=== PATIENT | female | born 1980 | race American Indian/Alaskan Native ===

== ENCOUNTER 2016-04-11 11:37 | Emergency (ER) | payer SELFPAY ==
--- NOTE | 2016-04-11 12:05 | Emergency Department Report ---
Chief Complaint: Headache Stated Complaint: HEADACHES Time Seen by Provider: 04/11/16 11:52 - HPI History of Present Illness: 35-year-old female with history of CVA and to brain aneurysms presents today with headache 2 days. Positive for sudden onset and rates it as a 7 out of 10. Also complaining of back and abdominal pain post her last brain aneurysm. Denies vision change, nausea, vomiting, dizziness, chest pain, shortness of breath. - ROS Review of Systems: Per HPI - Exam Vital Signs: Vital Signs 04/11/16 11:40 Temperature 97.9 F Pulse Rate 88 Blood Pressure 138/108 O2 Sat by Pulse 16 L Oximetry Physical Exam: General: 35-year-old female in no acute distress. Well-developed, well- nourished. CV: Regular rate and rhythm. No murmurs rubs or gallops. Lungs: Clear to auscultation bilaterally. Neuro: Alert and oriented 3, normal gait, fluid speech, EOMs intact, normal facial sensation, no facial droop, strength exam 5/5 upper and lower extremities , GCS equals 15, finger to nose normal, negative Romberg test. MSE screening note: Focused history and physical exam performed. Due to findings the following was ordered: ED Disposition for MSE Condition: Stable
[2016-04-11 12:28] LABS: Basophils % (Auto) 1.5 % (0.0-1.8); Eosinophils % (Auto) 2.1 % (0.0-4.3); Hematocrit 38.1 % (30.3-42.9); Mean Corpuscular HGB Conc 31 % (30-34); Mean Corpuscular Volume 78 fl (79-97); Platelet Count 332 K/mm3 (140-440); Red Blood Count 4.91 M/mm3 (3.65-5.03); Red Cell Distribution Width 15.2 % (13.2-15.2); White Blood Count 5.3 K/mm3 (4.5-11.0)
[2016-04-11 12:30] LABS: Mean Corpuscular Hemoglobin 24 pg (28-32)
[2016-04-11 12:43] LABS: BUN/Creatinine Ratio 13.33; Blood Urea Nitrogen 8 mg/dL (7-17); Calcium 8.5 mg/dL (8.4-10.2); Carbon Dioxide 29 mmol/L (22-30); Chloride 107.7 mmol/L (98-107); Glucose 96 mg/dL (65-100); Potassium 4.1 mmol/L (3.6-5.0); Sodium 144 mmol/L (137-145)
[2016-04-11 12:50] LABS: Anion Gap 11 mmol/L
--- NOTE | 2016-04-11 12:58 | Cat Scan Report ---
CT HEAD WITHOUT CONTRAST: HISTORY: Head ache. Compared to 06/07/15. left craniotomy changes and aneurysm coiling in the anterior [place] to the left of midline is noted. There is no evidence for acute hemorrhage. Focal encephalomalacia in the left subfrontal lobe measures 1.5 cm. This is probably related to surgery. The ventricles are normal in size and appearance. There is no mass effect or midline shift. No areas of abnormally increased or decreased attenuation are seen. No mass lesion is seen. The mastoid air cells and visualized portions of the sinuses are normal. IMPRESSION: No acute intracranial process. Surgical changes as described.
--- NOTE | 2016-04-11 22:56 | Emergency Department Report ---
HPI - General Chief Complaint: Headache Time Seen by Provider: 04/11/16 22:42 - HPI HPI: The patient is a 35-year-old female who presents for evaluation of back pain. The patient reports recurrence of neck pain for the past 2 days, worse to the bilateral lower back, 10 out of 10 in severity, sharp in quality, exacerbated with ambulation or bending of the back, and improved with rest. She has a secondary complaint of generalize aching moderate in severity headache, bandlike , constant since onset this a.m. greater than 8 hours prior to my evaluation. The patient denies blunt trauma to the back, fall, fever, neck stiffness, chest pain, dyspnea, saddle anesthesia, paresthesias, numbness or tingling in the legs , leg weakness, urine or bowel incontinence or retention, difficulty ambulating , or other focal neurological deficits. ED Past Medical Hx - Past Medical History Previous Medical History?: Yes Hx Hypertension: Yes Hx CVA: Yes (aneurysm 2015 and surgery) - Surgical History Past Surgical History?: Yes Additional Surgical History: brain aneurysm - Social History Smoking Status: Unknown if ever smoked Substance Use Type: None - Medications Home Medications: Home Medications Medication Instructions Recorded Confirmed Last Taken Type amLODIPine [Norvasc] 5 mg PO DAILY #31 tablet 05/22/15 04/11/16 06/06/15 Rx HYDROcodone/APAP 7.5-325 [[place] 1 each PO Q8HR PRN #12 tablet 04/11/16 Unknown Rx 7.5-325 mg TAB] Ibuprofen [Motrin] 800 mg PO Q8HR PRN #10 tablet 04/11/16 Unknown Rx ED Review of Systems ROS: Stated complaint: HEADACHES Other details as noted in HPI Constitutional: denies: fever ENT: denies: throat or neck pain Respiratory: denies: cough, shortness of breath Cardiovascular: denies: chest pain Endocrine: denies unexplained weight loss or gain Gastrointestinal: denies: abdominal pain, nausea Genitourinary: denies: dysuria Musculoskeletal: reports back pain Skin: denies: rash Neurological: reports headache Hematological/Lymphatic: denies: easy bleeding or easy bruising Psych: denies sadness or hopelessness Physical Exam - Physical Exam Vital Signs: Vital Signs 04/11/16 04/11/16 11:40 22:50 Temperature 97.9 F 98.1 F Pulse Rate 88 67 Respiratory 20 Rate Blood Pressure 138/108 Blood Pressure 160/82 [Left] O2 Sat by Pulse 16 L 100 Oximetry Physical Exam: General: well-nourished, well-developed, no acute distress, patient morbidly obese Head: Normocephalic, atraumatic Eyes: normal sclera, PERRL, EOM intact ENT: Mucous membranes are pink and moist Neck: trachea midline, neck supple, No neck stiffness, no cervical adenopathy Respiratory: Breath sounds equal bilaterally, no wheezing, rales, or rhonchi Cardio: S1 and S2 present, no murmurs, rubs, gallops, capillary refill is brisk Abdomen: Normoactive bowel sounds, soft abdomen, no rigidity, no guarding or rebound tenderness Chest WALL/Back: tenderness to palpation present to bilateral thoracic and lumbar paraspinal musculature, normal passive range of motion at the hips intact , no spinous step-off or obvious deformity, ipsi-lateral and contralateral straight leg raise tests are negative. On extremity testing, compartments are soft and pliable, no obvious gross motor strength deficit in the legs, 5+ motor strength, including extension of the great toe bilaterally, no muscular atrophy , spasticity, fasciculations, or clonus, no obvious gross sensation deficit including web space between 1st and 2nd toes, reflexes 2+ & symmetric on DTR testing at the knee and ankle joints, distal pulses intact. Musc: No pitting edema Skin: No rash Neuro: alert oriented x4, normal cognition, speech normal, no facial drooping, no uvula or tongue deviation on protrusion, no deficit with rotation of neck or shoulder shrug, no obvious gross motor deficit in the upper or lower extremities with flexion or extension at the shoulder, elbow, wrist, hip, knee, or ankle bilaterally, no obvious gross sensation deficit to crude touch or 2 pt discrimination, 2+ symmetric reflexes on DTR testing, no coordination deficit with gymifd-jd-fcat or rcek-td-xygn testing, patient able to to ambulate without abnormal gait Psych: Normal affect ED Course Vital Signs 04/11/16 04/11/16 11:40 22:50 Temperature 97.9 F 98.1 F Pulse Rate 88 67 Respiratory 20 Rate Blood Pressure 138/108 Blood Pressure 160/82 [Left] O2 Sat by Pulse 16 L 100 Oximetry ED Medical Decision Making - Lab Data Result diagrams: 04/11/16 12:11 04/11/16 12:11 - Medical Decision Making The patient was seen and examined by myself. The patient is placed on a lead android developer and continuous pulse ox. On initial evaluation, the patient was found to be in no distress. There are no neuro deficits and the patient's pain is consistent with previous headaches. The patient is given IM Toradol, Valium , and morphine for pain. No findings on exam concerning for cauda equina syndrome, spinal stenosis, or epidural abscess . As the patient has no midline tenderness on exam, no neuro deficits, and no findings concerning for emergent etiology of their back pain, imaging of the back will not be obtained at this time. Lab results are unremarkable. CAT scan of the head is negative for acute intracranial disease process. The patient was reevaluated and reported that her pain was markedly improved. The patient is stable for discharge with outpatient follow-up. The patient is given follow-up and return instructions. The patient expressed understanding and agreed with the plan. The patient is discharged in stable condition. Critical care attestation.: If time is entered above; I have spent that time in minutes in the direct care of this critically ill patient, excluding procedure time. ED Disposition Clinical Impression: Acute bilateral low back pain without sciatica, Acute non intractable tension- type headache Disposition: DISCHARGED TO HOME OR SELFCARE Is pt being admited?: No Does the pt Need Aspirin: No Condition: Stable Instructions: Acute Headache (ED), Acute Low Back Pain (ED) Referrals: PRIMARY CARE, [Primary Care Provider] - 3-5 Days Time of Disposition: 22:56
[2016-04-11] MEDS ORDERED: VALIUM IM ONE (23:10)
[2016-04-11] MEDS ORDERED: DILAUDID IM ONE (23:10)
[2016-04-11] MEDS ORDERED: TORADOL IM ONE (23:10)
[2016-04-12 01:06] VITALS: BP 150/78
== END 2016-04-12 01:07 | disposition home or self-care (01) ==
LOC: ED 11:37
DX: M54.5 Low back pain (principal); G44.209 Tension-type headache, unspecified, not intractable; I10 Essential (primary) hypertension; I63.9 Cerebral infarction, unspecified
CPT/HCPCS: 36415; 70450; 80048; 85025; 96372; 99284; J1170; J1885; J3360

== ENCOUNTER 2017-06-07 17:55 | Emergency (ER) | payer OTHER ==
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
[2017-06-07 22:47] VITALS: BP 163/96
== END 2017-06-07 22:47 | disposition home or self-care (01) ==
LOC: ED 17:55
DX: M54.9 Dorsalgia, unspecified (principal); M54.2 Cervicalgia; I10 Essential (primary) hypertension; F17.200 Nicotine dependence, unspecified, uncomplicated; Z86.73 Personal history of transient ischemic attack (TIA), and cerebral infarction without residual deficits; Z88.6 Allergy status to analgesic agent
CPT/HCPCS: 99282

== ENCOUNTER 2018-10-05 14:42 | Emergency (ER) | payer SELFPAY ==
--- NOTE | 2018-10-05 15:58 | Event Note ---
ED Screening Note ED Screening Note: pt presents with right wrist, and hand pain began a week ago denies any fall or injury PMHx HTN allergy: tramadol +smoker non drinker no drug use This initial assessment/diagnostic orders/clinical plan/treatment(s) is/are subject to change based on patients health status, clinical progression and re- assessment by fellow clinical providers in the ED. Further treatment and workup at subsequent clinical providers discretion. Patient/guardian urged not to elope from the ED as their condition may be serious if not clinically assessed and managed. Initial orders include: XR right wrist and right hand
--- NOTE | 2018-10-05 16:58 | XRay Report ---
RIGHT HAND 3 VIEWS INDICATION / CLINICAL INFORMATION: right hand pain. COMPARISON: None available. FINDINGS: No significant skeletal abnormality. Signer Name: Praful Acuna MD FACBandar Signed: 10/05/2018 4:54 PM Workstation Name: [id number]
--- NOTE | 2018-10-05 16:59 | XRay Report ---
RIGHT WRIST 4 VIEWS INDICATION / CLINICAL INFORMATION: right wrist pain. COMPARISON: None available. FINDINGS: No significant skeletal abnormality. Signer Name: Praful Acuna MD FACBandar Signed: 10/05/2018 4:55 PM Workstation Name: [id number]
[2018-10-05] MEDS ORDERED: NORCO 5/325 PO ONE (19:43)
[2018-10-05] MEDS ORDERED: DELTASONE PO ONE (19:43)
[2018-10-05] MEDS ORDERED: IBUPROFEN PO ONE (19:43)
[2018-10-05] MEDS ORDERED: ZOFRAN ODT PO ONE (19:44)
--- NOTE | 2018-10-05 20:16 | Emergency Department Report ---
Upper Extremity - HPI Chief Complaint: Extremity Injury, Upper Stated Complaint: R HAND PAIN/HIGH BP Time Seen by Provider: 10/05/18 15:57 Upper Extremity: Right Wrist (pain), Right Hand (pain) Occurred When: >5 Days Mechanism: Unsure, Other (Spontaneous, chronic Carpal tunnel syndrome) Symptoms: Yes Pain with Movement, Yes Limited Range of Movement (due to pain), Yes Numbness, No Deformity, No Weakness, No Swelling, No Bruising/Ecchymosis, No Laceration or Abrasion Other History: The patient is a 37-year-old -Beninese female with a history of carpal tunnel syndrome and hypertension who presents to the ED with complaint of acute exacerbation of her chronic carpal tunnel syndrome characterized by severe right hand and wrist pain for the last 1 week. Patient states that she tried to take [id number] pain medications with no relief. 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 Patient denies fall, traumatic injuries, weakness of right hand and right wrist, dizziness, neck pain, chest pain, shortness of breath, fever or chills and nausea and vomiting. ED Review of Systems ROS: Stated complaint: R HAND PAIN/HIGH BP Other details as noted in HPI Constitutional: denies: chills, fever Eyes: denies: eye pain, eye discharge, vision change ENT: denies: ear pain, throat pain Respiratory: denies: cough, shortness of breath, wheezing Cardiovascular: denies: chest pain, palpitations Endocrine: no symptoms reported Gastrointestinal: denies: abdominal pain, nausea, diarrhea Genitourinary: denies: urgency, dysuria, discharge Musculoskeletal: arthralgia (right hand and wrist ). denies: back pain, joint swelling Skin: denies: rash, lesions Neurological: denies: headache, weakness, paresthesias Psychiatric: denies: anxiety, depression Hematological/Lymphatic: denies: easy bleeding, easy bruising ED Past Medical Hx - Past Medical History Hx Hypertension: Yes Hx CVA: Yes (aneurysm 2015 and surgery) - Surgical History Additional Surgical History: brain aneurysm - Social History Smoking Status: Current Every Day Smoker Substance Use Type: None - Medications Home Medications: Home Medications Medication Instructions Recorded Confirmed Last Taken Type amLODIPine [Norvasc] 5 mg PO DAILY #31 tablet 05/22/15 04/11/16 06/06/15 Rx HYDROcodone/APAP 7.5-325 [[place] 1 each PO Q8HR PRN #12 tablet 04/11/16 Unknown Rx 7.5-325 mg TAB] Ibuprofen [Motrin] 800 mg PO Q8HR PRN #10 tablet 04/11/16 Unknown Rx Ibuprofen 600 mg PO Q8H PRN #15 tablet 06/07/17 Unknown Rx Lisinopril/Hydrochlorothiazide 1 tab PO QDAY #30 tablet 06/07/17 Unknown Rx [Zestoretic 10-12.5 mg] Acetaminophen/Codeine [Tylenol 1 tab PO Q6H PRN #15 tab 10/05/18 Unknown Rx /Codeine # 3 tab] Gabapentin [Gralise] 300 mg PO DAILY PRN #30 tab.er.24h 10/05/18 Unknown Rx Naproxen [Naprosyn] 500 mg PO Q12H PRN #20 tablet 10/05/18 Unknown Rx Ondansetron [Zofran Odt] 4 mg PO Q6HR PRN #15 tab.rapdis 10/05/18 Unknown Rx predniSONE [Deltasone] 60 mg PO QDAY #15 tab 10/05/18 Unknown Rx Upper Extremity Exam - Exam General: Vital signs noted. No distress. Alert and acting appropriately. Head and Torso: No HEENT Abnormality, No Neck Tenderness, No Chest/Lungs Abnormality, No Abdominal Tenderness, No Back Tenderness Shoulder Exam: Yes Normal Range of Motion in Shoulder, No Shoulder Tenderness, No Clavicle Tenderness, No Shoulder Deformity, No AC Joint Tenderness Arm Exam: No Arm/Humerus Tenderness, No Arm Deformity Elbow: Yes Normal Range of Motion in Elbow, No Elbow Tenderness, No Elbow Deformity Forearm: No Forearm Tenderness, No Forearm Deformity, No Pain with Pronation, No Pain with Supination Wrist: Yes Wrist Tenderness (right wrist), No Normal ROM in Wrist (limited due to pain), No Wrist Deformity, No Snuffbox Tenderness, No Pain with Axial Thumb Compression Hand: Yes Hand Tenderness (right hand), Yes Normal ROM in Digit(s), No Hand Deformity, No Digit Tenderness, No Digit(s) Deformity, No Tendon Dysfunction CMS Exam: No Broken Skin, No Normal Distal Pulses, No Normal Capillary Refill, No Normal Distal Sensation Hand L/R Front: 1 - Palpable tenderness Hand L/R Back: 1 - Palpable tenderness ED Course Vital Signs 10/05/18 10/05/18 15:57 19:58 Temperature 98.1 F Pulse Rate 70 Respiratory 16 18 Rate Blood Pressure 164/117 O2 Sat by Pulse 100 Oximetry - Reevaluation(s) Reevaluation #1: 10/05/18 20:18 Patient is alert and oriented 3 and is not in distress but in pain. Right hand and wrist x-rays show no acute fractures or subluxations, no soft tissue swelling. Patient was treated for pain and the right hand and wrist joints were splinted. Wrist splint, and patient is sent home on medications for pain, and advised to follow-up with her primary care physician in 5-7 days for reevalu ation, or return to the ED immediately if symptoms get worse. ED Medical Decision Making - Radiology Data Radiology results: report reviewed, image reviewed Right hand x-ray: No acute fractures or subluxations Right wrist x-ray: No acute fractures or subluxations - Medical Decision Making Patient is alert and oriented 3 and is not in distress but in pain. Right hand and wrist x-rays show no acute fractures or subluxations, no soft tissue swelling. Patient was treated for pain and the right hand and wrist joints were splinted. Wrist splint, and patient is sent home on medications for pain, and advised to follow-up with her primary care physician in 5-7 days for reevaluation, or return to the ED immediately if symptoms get worse. - Differential Diagnosis Carpal Tunnel Syndrome; Tendonitis; Muscle strain, wrist fracture Critical care attestation.: If time is entered above; I have spent that time in minutes in the direct care of this critically ill patient, excluding procedure time. ED Disposition Clinical Impression: Carpal tunnel syndrome of right wrist, Tendonitis of right hand Disposition: - TO HOME OR SELFCARE Is pt being admited?: No Does the pt Need Aspirin: No Condition: Stable Instructions: Carpal Tunnel Syndrome (ED), Tendinitis (ED) Additional Instructions: Take medications with food, drink plenty of fluids and follow up with your primary care physician is advised in 7-10 days for reevaluation. Return to the ED immediately if symptoms get worse. Prescriptions: predniSONE [Deltasone] 60 mg PO QDAY #15 tab Gabapentin [Gralise] 300 mg PO DAILY PRN #30 tab.er.24h PRN Reason: Pain , Severe (7-10) Naproxen [Naprosyn] 500 mg PO Q12H PRN #20 tablet PRN Reason: Pain , Severe (7-10) Acetaminophen/Codeine [Tylenol /Codeine # 3 tab] 1 tab PO Q6H PRN #15 tab PRN Reason: Pain , Severe (7-10) Ondansetron [Zofran Odt] 4 mg PO Q6HR PRN #15 tab.rapdis PRN Reason: Nausea Referrals: [facility] [Outside] - 3-5 Days Time of Disposition: 20:13 Print Language: CUBAN
[2018-10-05 20:19] VITALS: BP 153/91
== END 2018-10-05 20:57 | disposition home or self-care (01) ==
LOC: ED 14:42
DX: G56.01 Carpal tunnel syndrome, right upper limb (principal); M77.9 Enthesopathy, unspecified; I10 Essential (primary) hypertension; F17.200 Nicotine dependence, unspecified, uncomplicated; Z79.1 Long term (current) use of non-steroidal anti-inflammatories (NSAID); Z88.5 Allergy status to narcotic agent; Z79.899 Other long term (current) drug therapy
CPT/HCPCS: 29125; 73110; 73130; 99284; J7512; Q0162

== ENCOUNTER 2019-02-08 11:05 | Emergency (ER) | payer SELFPAY ==
[2019-02-08] MEDS ORDERED: ASPIRIN 325 MG TAB PO ONE (11:59)
--- NOTE | 2019-02-08 11:59 | Event Note ---
ED Screening Note Date of service: 02/08/19 Time: 11:57 ED Screening Note: 38 y o F with PMH of HTN presents with chest pain x 3 days no radiation out of BP meds x 2 days PMH of 2 brain joy This initial assessment/diagnostic orders/clinical plan/treatment(s) is/are subject to change based on patients health status, clinical progression and re- assessment by fellow clinical providers in the ED. Further treatment and workup at subsequent clinical providers discretion. Patient/guardian urged not to elope from the ED as their condition may be serious if not clinically assessed and managed. Initial orders include: labs, ekg,cxr
[2019-02-08 12:46] LABS: Basophils # (Auto) 0.1 K/mm3 (0.0-0.1); Basophils % (Auto) 1.2 % (0.0-1.8); Eosinophils # (Auto) 0.1 K/mm3 (0.0-0.4); Eosinophils % (Auto) 2.1 % (0.0-4.3); Hematocrit 36.2 % (30.3-42.9); Hemoglobin 11.6 gm/dl (10.1-14.3); Lymphocytes # (Auto) 2.4 K/mm3 (1.2-5.4); Lymphocytes % (Auto) 46.6 % (13.4-35.0); Mean Corpuscular HGB Conc 32 % (30-34); Mean Corpuscular Volume 79 fl (79-97); Monocytes # (Auto) 0.4 K/mm3 (0.0-0.8); Monocytes % (Auto) 6.9 % (0.0-7.3); Platelet Count 379 K/mm3 (140-440); Red Blood Count 4.61 M/mm3 (3.65-5.03); Red Cell Distribution Width 14.6 % (13.2-15.2)
[2019-02-08 12:51] LABS: BUN/Creatinine Ratio 17; Blood Urea Nitrogen 15 mg/dL (7-17); Hemolysis Index 7
--- NOTE | 2019-02-08 13:52 | XRay Report ---
CHEST 2 VIEWS INDICATION: Chest Pain/ HCG ORDERED 1203 AYT. COMPARISON: None FINDINGS: Support devices: None. Heart: Within normal limits. Lungs/pleura: No acute air space or interstitial disease. No pneumothorax. Please note the right lat eral chest wall is cut off the [id number]. Additional findings: None. IMPRESSION: No acute findings. Signer Name: Randy Garner Jr, MD Signed: 02/08/2019 1:47 PM Workstation Name: [id number]
[2019-02-08] MEDS ORDERED: ASPIRIN 325 MG TAB ONE (14:25)
[2019-02-08] MEDS ORDERED: LISINOPRIL 20 MG TAB PO ONE (14:33)
[2019-02-08] MEDS ORDERED: hydroCHLOROthiazide 25 MG TAB PO ONE (14:33)
--- NOTE | 2019-02-08 14:47 | Emergency Department Report ---
ED General Adult HPI - General Chief complaint: Chest Pain Stated complaint: BACK PAIN/BP HIGH Time Seen by Provider: 02/08/19 14:24 Source: patient Mode of arrival: Ambulatory Limitations: No Limitations - History of Present Illness Initial comments: 38yo female comes to ER today after being seen at [facility] due to her BP being elevated. On probing pt was given 30 lisinopril/hctz in 05/2017- this has lasted her until just a few days ago. She was taking them PRN. Pt endorces many vague complaints such as cp, sob, neck pain- since stopping her bp meds. PCP NONE RX NONE [facility] POS CIG/THC Pt ambulatory and in no acute distress on arrival to ER. She denied complaints with me and is essentially here for BP meds. Labs noted per the screening process. Pt educated on bp, her risk and follow up she needs to pursue. -: Gradual Treatments Prior to Arrival: none - Related Data Previous Rx's Medication Instructions Recorded Last Taken Type Lisinopril/Hydrochlorothiazide 1 tab PO QDAY #30 tablet 06/07/17 Unknown Rx [Zestoretic 10-12.5 mg] Lisinopril [Zestril TAB] 20 mg PO QDAY #30 tablet 02/08/19 Unknown Rx hydroCHLOROthiazide [HCTZ] 25 mg PO QDAY #30 tablet 02/08/19 Unknown Rx Allergies Allergy/AdvReac Type Severity Reaction Status Date / Time tramadol Allergy Vomiting Verified 10/05/18 14:53 steriods Allergy Swelling Uncoded 02/08/19 11:08 ED Review of Systems ROS: Stated complaint: BACK PAIN/BP HIGH Other details as noted in HPI Comment: All other systems reviewed and negative ED Past Medical Hx - Past Medical History Previous Medical History?: Yes Hx Hypertension: Yes Hx CVA: Yes (aneurysm 2015 and surgery) Hx Heart Attack/AMI: No Hx Congestive Heart Failure: No Hx Diabetes: No Hx Deep Vein Thrombosis: No Hx Pulmonary Embolism: No Hx GERD: No Hx Liver Disease: No Hx Renal Disease: No Hx of Cancer: No Hx Sickle Cell Disease: No Hx Arthritis: No Hx Headaches / Migraines: No Hx Seizures: No Hx Kidney Stones: No Hx Psychiatric Treatment: No Hx Asthma: No Hx COPD: No Hx Tuberculosis: No Hx Dementia: No Hx HIV: No - Surgical History Past Surgical History?: Yes Additional Surgical History: brain aneurysm- hernia - Family History Family history: no significant - Social History Smoking Status: Current Every Day Smoker Substance Use Type: Marijuana - Medications Home Medications: Home Medications Medication Instructions Recorded Confirmed Last Taken Type Lisinopril/Hydrochlorothiazide 1 tab PO QDAY #30 tablet 06/07/17 Unknown Rx [Zestoretic 10-12.5 mg] Lisinopril [Zestril TAB] 20 mg PO QDAY #30 tablet 02/08/19 Unknown Rx hydroCHLOROthiazide [HCTZ] 25 mg PO QDAY #30 tablet 02/08/19 Unknown Rx ED Physical Exam - General Limitations: No Limitations General appearance: alert, in no apparent distress - Head Head exam: Present: atraumatic, normocephalic - Eye Eye exam: Present: normal appearance - ENT ENT exam: Present: mucous membranes moist - Neck Neck exam: Present: normal inspection - Respiratory Respiratory exam: Present: normal lung sounds bilaterally. Absent: respiratory distress - Cardiovascular Cardiovascular Exam: Present: regular rate, normal rhythm. Absent: systolic murmur, diastolic murmur, rubs, gallop - GI/Abdominal GI/Abdominal exam: Present: soft, normal bowel sounds - Extremities Exam Extremities exam: Present: normal inspection - Back Exam Back exam: Present: normal inspection - Neurological Exam Neurological exam: Present: alert, oriented X3 - Psychiatric Psychiatric exam: Present: normal affect, normal mood - Skin Skin exam: Present: warm, dry, intact, normal color. Absent: rash ED Course Vital Signs 02/08/19 02/08/19 02/08/19 11:54 14:38 15:21 Temperature 98.3 F Pulse Rate 86 62 Respiratory 17 22 Rate Blood Pressure 152/103 165/101 Blood Pressure 167/105 [Left] O2 Sat by Pulse 100 100 Oximetry 02/08/19 02/08/19 15:26 15:28 Temperature Pulse Rate 65 Respiratory 16 12 Rate Blood Pressure Blood Pressure 146/98 [Left] O2 Sat by Pulse 98 98 Oximetry ED Medical Decision Making - Lab Data Result diagrams: 02/08/19 12:26 02/08/19 12:26 - EKG Data EKG shows normal: sinus rhythm Rate: normal - EKG Data When compared to previous EKG there are: no significant change Interpretation: no acute changes - Radiology Data Radiology results: report reviewed, image reviewed - Medical Decision Making Lab Results 02/08/19 02/08/19 02/08/19 Range/Units 12:26 12:26 12:26 WBC 5.2 (4.5-11.0) K/mm3 RBC 4.61 (3.65-5.03) M/mm3 Hgb 11.6 (10.1-14.3) gm/dl Hct 36.2 (30.3-42.9) % MCV 79 (79-97) fl MCH 25 L (28-32) pg MCHC 32 (30-34) % RDW 14.6 (13.2-15.2) % Plt Count 379 (140-440) K/mm3 Lymph % (Auto) 46.6 H (13.4-35.0) % [place] % (Auto) 6.9 (0.0-7.3) % Eos % (Auto) 2.1 (0.0-4.3) % Baso % (Auto) 1.2 (0.0-1.8) % Lymph # 2.4 (1.2-5.4) K/mm3 [place] # 0.4 (0.0-0.8) K/mm3 Eos # 0.1 (0.0-0.4) K/mm3 Baso # 0.1 (0.0-0.1) K/mm3 Seg Neutrophils % 43.2 (40.0-70.0) % Seg Neutrophils # 2.3 (1.8-7.7) K/mm3 Sodium 143 (137-145) mmol/L Potassium 3.6 (3.6-5.0) mmol/L Chloride 105.5 (98-107) mmol/L Carbon Dioxide 24 (22-30) mmol/L Anion Gap 17 mmol/L BUN 15 (7-17) mg/dL Creatinine 0.9 (0.7-1.2) mg/dL Estimated GFR > 60 ml/min BUN/Creatinine Ratio 17 % Glucose 82 (65-100) mg/dL Calcium 9.0 (8.4-10.2) mg/dL Troponin T < 0.010 (0.00-0.029) ng/mL HCG, Qual Negative (Negative) Vital Signs 02/08/19 02/08/19 11:54 14:38 Temperature 98.3 F Pulse Rate 86 62 Respiratory 17 22 Rate Blood Pressure 152/103 Blood Pressure 167/105 [Left] O2 Sat by Pulse 100 100 Oximetry trop neg 12 lead nap bp elevated- medicated for a/c htn no cp, no sob, no neuro complaints neuro intact without deficit will dc home with dc plan of care and pcp follow up. - Differential Diagnosis a/c htn Critical care attestation.: If time is entered above; I have spent that time in minutes in the direct care of this critically ill patient, excluding procedure time. ED Disposition Clinical Impression: Hypertension, Nonadherence to medical treatment, Cigarette smoker, Tetrahydrocannabinol (THC) use disorder, mild, abuse Disposition: DC-01 TO HOME OR SELFCARE Is pt being admited?: No Does the pt Need Aspirin: No Condition: Stable Instructions: Hypertension (ED) Additional Instructions: stop smoking stop using weed follow up with pcp referral below low salt low fat diet hydrate well with water take med every day as ordered taking it once in a while actually makes your bp worse. Prescriptions: hydroCHLOROthiazide [HCTZ] 25 mg PO QDAY #30 tablet Lisinopril [Zestril TAB] 20 mg PO QDAY #30 tablet Referrals: [facility] [Outside] - 3-5 Days Time of Disposition: 14:44
[2019-02-08 15:30] VITALS: BP 146/98
== END 2019-02-08 15:48 | disposition home or self-care (01) ==
LOC: ED 11:05
DX: I10 Essential (primary) hypertension (principal); F12.10 Cannabis abuse, uncomplicated; F17.200 Nicotine dependence, unspecified, uncomplicated
CPT/HCPCS: 36415; 71046; 80048; 84484; 84703; 85025; 93005; 93010